=== PATIENT | male | born 1955 | race Caucasian/White ===

== ENCOUNTER 2023-10-04 08:05 | Day surgery (SDC) | payer MEDICARE, OTHER ==
[~2023-10-04] VITALS: Ht 177.8 cm; Wt 102.1 kg
[2023-10-04] VITALS (15 sets, daily range): BP systolic 117–161; BP diastolic 68–99; PULSE 62–86; RESP 12–21; TEMP 98.1; O2SAT 92–99
[~2023-10-04 08:05] MED LIST: ASCO500T8 PO; EZET10TA48 PO; LATA2.5D14 EACHEYE; LOTLOT OT; MACU GUARD; MEDICAL CANNABIS; MOME17SP11 BOTHNARES; PSYLLIUM HUSK; ROSU10TA28 PO; TESTOSTERONE; VIT D3; oxymetazoline 15 ML nasal spray NS ONE
[2023-10-04] MEDS: tranexamic acid inj. 1,000 MG in normal saline IV soln 100ML IV ONE (09:03)
[2023-10-04] MEDS: albuterol 2.5 MG/3 ML nebule NEB ONE (09:04)
[2023-10-04] MEDS: famotidine 20mg tablet PO ONE (09:05)
[2023-10-04] MEDS: ringers solution, lacted 1,000 ML IV SCH (09:06)
[2023-10-04] MEDS: oxymetazoline 15 ML nasal spray NS SCH (10:01)
[2023-10-04] MEDS ORDERED: sevoflurane 250ml liquid IH ONE (10:37)
[2023-10-04] MEDS ORDERED: fentaNYL/PF 50MCG/1 ML 2ML syringe ONE (10:49)
[2023-10-04] MEDS ORDERED: midazolam 1 mg/ML 2ml injection ONE (10:59)
[2023-10-04] MEDS ORDERED: LIDOcaine 2% (20mg/ml) 5ml vial ONE ×2 (11:00→11:02)
[2023-10-04] MEDS ORDERED: propofol inj 20 ML IV ONE ×2 (11:00→11:02)
[2023-10-04] MEDS ORDERED: ondansetron/PF 4mg/2ml inj ONE (11:03)
[2023-10-04] MEDS ORDERED: dexamethasone sod phosphate 4mg/ml inj. ONE (11:03)
[2023-10-04] MEDS ORDERED: ePHEDrine 50MG/ML INJ. ONE (11:13)
[2023-10-04] MEDS ORDERED: 0.9 % SODIUM CHLORIDE 10 ML VIAL ONE (11:13)
[2023-10-04] MEDS: LIDOcaine 1% w/EPI 1:100,000 inj. MDV 50 ML VIAL ONE (11:24)
[2023-10-04] MEDS: epiNEPHrine 1 mg/ml 30ml MDV ONE (11:24)
[2023-10-04] MEDS: cocaine 4% topical solution 4ml bottle ONE (11:24)
[2023-10-04] MEDS: tranexamic acid 100mg/ml inj. ONE (11:25)
[2023-10-04] MEDS: mupirocin 2% ointment 22GM ONE (11:25)
[2023-10-04] MEDS ORDERED: ondansetron/PF 4mg/2ml inj IV PRN (12:10)
[2023-10-04] MEDS ORDERED: proCHLORperazine 10 MG/2 ml inj IV PRN (12:10)
[2023-10-04] MEDS ORDERED: labetalol 20mg/4ml (5mg/ml) syringe IV PRN (12:10)
[2023-10-04] MEDS ORDERED: morphine 4 MG/ML inj SYRINge IV PRN (12:10)
[2023-10-04] MEDS ORDERED: meperidine/PF 25mg/ml syringe IV PRN ×2 (12:10)
[2023-10-04] MEDS ORDERED: ringers solution, lacted 1,000 ML IV SCH (12:10)
[2023-10-04] MEDS ORDERED: hydrALAZINE 20mg/ml inj. IV PRN (12:10)
[2023-10-04] MEDS ORDERED: morphine 2 MG/ML inj. syringe IV PRN (12:10)
[2023-10-04] MEDS: acetaminophen 1,000mg/100ml IV 100 ML IV ONE (12:19)
[2023-10-04] MEDS: meperidine/PF 25mg/ml syringe IV PRN (12:25)
[2023-10-04] MEDS ORDERED: salt irrigation nasal spray 45 ML SPRAY NS PRN (13:05)
== END 2023-10-04 14:40 | disposition home or self-care (01) ==
LOC: PAS 08:05
PROVIDERS: ATTEND Otolaryngology
DX: J32.8 Other chronic sinusitis (principal); J33.8 Other polyp of sinus; I10 Essential (primary) hypertension; E11.9 Type 2 diabetes mellitus without complications; E78.5 Hyperlipidemia, unspecified; F41.9 Anxiety disorder, unspecified; F32.A Depression, unspecified; H40.9 Unspecified glaucoma; G47.33 Obstructive sleep apnea (adult) (pediatric); I73.9 Peripheral vascular disease, unspecified; I25.2 Old myocardial infarction; I20.9 Angina pectoris, unspecified; Z79.899 Other long term (current) drug therapy; Z88.0 Allergy status to penicillin; Z88.1 Allergy status to other antibiotic agents
CPT/HCPCS: 31259; 31267; 31276; 61782; 82948; A6402; J0131; J0171; J1100; J2175; J2250; J2405; J2704; J3010; J3490; J7030; J7050; J7120; Z7506; Z7508; Z7512; A4618; A6449; A7000